=== PATIENT | male | born 1975 | race Caucasian/White ===

== ENCOUNTER 2023-12-20 12:28 | Emergency (ER) | payer MEDICAID, OTHER ==
--- NOTE | 2023-12-20 12:48 | ED Physician Documentation ---
PD HPI ALTERED MENTAL STATUS - Stated complaint Stated Complaint: BACK/LEFT HEAD PX,MEMORY LOSS - Chief complaint Chief Complaint: Neuro - History obtained from History obtained from: Patient - Additional information Additional information: 48-year-old gentleman with history of bipolar disorder currently maintained on sertraline and Wellbutrin. Has history of psychiatric hospitalizations for same. He says he felt normal Wednesday midday and then subsequently does not remember what happened. It sounds like he had some sort of thing where he was banging on cars and running in traffic and ended up getting arrested. He was in care home until this morning and he states he does not really remember anything since Wednesday. He denies any hard drug use, just nicotine. He has a history of alcoholism but says that is in remission. He does have a left posterior headache with question of head trauma but no clear head trauma. There is a family history of CADASIL. PD PAST MEDICAL HISTORY - Past Medical History Past Medical History: Yes Psych: Bipolar disorder - Past Surgical History Past Surgical History: No - Present Medications Home Medications: Ambulatory Orders Medication Instructions Recorded Confirmed Atorvastatin [Lipitor] 10 mg PO DAILY 12/20/23 12/20/23 Sertraline [Zoloft] 75 mg PO DAILY 12/20/23 12/20/23 amLODIPine [Norvasc] 5 mg PO DAILY 12/20/23 12/20/23 buPROPion [Wellbutrin Sr] 150 mg PO BID 12/20/23 12/20/23 risperiDONE [Risperdal] 0.5 mg PO BID #60 tablet 12/20/23 - Allergies Allergies/Adverse Reactions: Allergies Allergy/AdvReac Type Severity Reaction Status Date / Time venlafaxine [From Effexor] AdvReac Anxiety Verified 12/20/23 15:32 - Social History Does the pt smoke?: No Smoking Status: Never smoker Does the pt drink ETOH?: No Does the pt have substance abuse?: No - Immunizations Immunizations are current?: Yes - POLST Patient has POLST: No PD ED PE NORMAL - Vitals Vital signs reviewed: Yes - General General: Alert and oriented X 3, No acute distress - HEENT HEENT: PERRL, EOMI - Neck Neck: Supple, no meningeal sign, No bony TTP - Cardiac Cardiac: RRR, No murmur - Respiratory Respiratory: No respiratory distress, Clear bilaterally - Abdomen Abdomen: Non tender - Back Back: No CVA TTP, No spinal TTP - Derm Derm: Normal color, Warm and dry - Neuro Neuro: Alert and oriented X 3, rotating equipment engineer 2-12 intact, No motor deficit, No sensory deficit, Normal speech Eye Opening: Spontaneous Motor: Obeys Commands Verbal: Oriented GCS Score: 15 Results - Vitals Vitals: Vital Signs - 24 hr 12/20/23 12/20/23 12:38 14:55 Temperature 36.8 C Heart Rate 98 80 Respiratory 16 20 Rate Blood Pressure 155/93 H 155/89 H O2 Saturation 99 98 Oxygen O2 Source Room air - Labs Labs: Laboratory Tests 12/20/23 12/20/23 12/20/23 12:53 12:53 13:10 WBC 5.4 RBC 4.88 Hgb 14.9 Hct 43.4 MCV 88.9 MCH 30.5 MCHC 34.3 RDW 13.6 Plt Count 195 MPV 10.5 Neut # (Auto) 4.1 Lymph # (Auto) 1.0 L [place] # (Auto) 0.3 Eos # (Auto) 0.0 Baso # (Auto) 0.0 Absolute Nucleated RBC 0.00 Nucleated RBC % 0.0 Sodium 137 Potassium 3.5 Chloride 101 Carbon Dioxide 26 Anion Gap 10.0 BUN 19 Creatinine 1.0 Estimated GFR (MDRD) 79 L Glucose 158 H Calcium 9.7 Magnesium 1.8 Total Bilirubin 0.5 AST 22 ALT 31 Alkaline Phosphatase 75 Total Creatine Kinase 107 Total Protein 7.3 Albumin 4.8 Globulin 2.5 Albumin/Globulin Ratio 1.9 Lipase 23 TSH 2.11 Urine Color YELLOW Urine Clarity CLEAR Urine pH 6.0 Ur Specific [place] 1.020 Urine Protein NEGATIVE Urine Glucose (UA) NEGATIVE Urine Ketones NEGATIVE Urine Occult Blood TRACE-INTA Urine Nitrite NEGATIVE Urine Bilirubin NEGATIVE Urine Urobilinogen 0.2 (NORMAL) Ur Leukocyte Esterase NEGATIVE Ur Microscopic Review NOT INDICATED Urine Culture Comments NOT INDICATED Salicylates < 1.5 Urine Opiates Screen NEGATIVE Ur Buprenorphine Scrn NEGATIVE Ur Oxycodone Screen NEGATIVE Urine Methadone Screen NEGATIVE Acetaminophen 0.2 Ur Barbiturates Screen NEGATIVE Ur Tricyclics Screen NEGATIVE Ur Phencyclidine Scrn NEGATIVE Ur Amphetamine Screen NEGATIVE U Methamphetamines Scrn NEGATIVE U Benzodiazepines Scrn NEGATIVE Urine Cocaine Screen NEGATIVE U Cannabinoids Screen NEGATIVE Ur Drug Screen Comment CUTOFF CONC BELOW: Ethyl Alcohol < 10.0 - Rads (name of study) CT of the head without contrast was normal. Relevant Findings:: Final report received, EMP independent interpretation of test PD Medical Decision Making - ED course ED course: He has 2 days of memory loss in the setting of underlying psychiatric disease. He is on Wellbutrin and sertraline for his bipolar. Most likely going to be a resolved psychotic break. That said drug use is also considered. Nothing in the history or physical to suggest stroke. That said he has a family history which is concerning. He was seen by telepsychiatry who recommends discontinuation of he had a medical workup done which demonstrated normal CBC, CMP only notable for mild hyperglycemia, urine normal, toxicology test all negative. He was seen by our telepsychiatric field consultant who recommended discontinuation of Wellbutrin and sertraline with the addition of Risperdal 0.5 mg p.o. twice daily. Departure - Departure Disposition: Home, Self Care Clinical Impression: Bipolar disorder, current episode hypomanic Condition: Good Record reviewed to determine appropriate education?: Yes Instructions: ED Manic Depression Follow-Up: Greer Dickerson, JASMINA, DIAMOND FINISHING SUPERVISOR, PMHNP [Credentialed Staff Provider] - Prescriptions: risperiDONE [Risperdal] 0.5 mg PO BID #60 tablet Comments: You were seen today for an episode that we think was probably related to your psychiatric disorder. Given the circumstances a medical workup was done which was normal with the exception of mild elevation in your blood sugar to 158 and negative toxicology testing which includes all drugs of abuse and alcohol. CAT scan of the head was also normal/negative. Your Were seen by our telepsychiatric field consultant who recommended discontinuing Wellbutrin and sertraline with starting risperidone at 0.5 mg p.o. twice daily. I sent this prescription to [facility] in [place]. If you have any thoughts of hurting yourself or anyone else, please call the crisis line at [phone], let your outpatient provider know, call [phone], or crisis line at [phone], or return to the emergency department. Please follow-up with your primary care for provider within 2 weeks to check in on medications. We recommend reading the medication insert when you cloth picker the medication from the pharmacy for detailed information. Forms: PCP List
[2023-12-20 13:02] LABS: BASOPHILS % (AUTO) 0.4 %; EOSINOPHILS % (AUTO) 0.2 %; HCT - HEMATOCRIT 43.4 % (42.0-52.0); HGB - HEMOGLOBIN 14.9 g/dL (14.0-18.0); LYMPHOCYTES % (AUTO) 17.5 %; MEAN CORPUSCULAR HEMOGLOBIN 30.5 pg (27.0-31.0); MEAN CORPUSCULAR HGB CONC 34.3 g/dL (32.0-36.0); MEAN CORPUSCULAR VOLUME 88.9 fL (80.0-94.0); MEAN PLATELET VOLUME 10.5 fL (7.4-11.4); MONOCYTES # (AUTO) 0.3 10^3/uL (0.0-1.0); MONOCYTES % (AUTO) 6.1 %; NEUTROPHILS # (AUTO) 4.1 10^3/uL (1.5-6.6); NEUTROPHILS % (AUTO) 75.6 %; PLT - PLATELET COUNT 195 10^3/uL (130-450); RED BLOOD COUNT 4.88 10^6/uL (4.70-6.10); RED CELL DISTRIBUTION WIDTH 13.6 % (12.0-15.0); WHITE BLOOD COUNT 5.4 x10^3/uL (4.8-10.8)
[2023-12-20 13:22] LABS: BILIRUBIN,URINE NEGATIVE (NEGATIVE); CLARITY,URINE CLEAR (CLEAR); GLUCOSE, URINE (UA) NEGATIVE (NEGATIVE); KETONES,URINE (UA) NEGATIVE (NEGATIVE); LEUKOCYTE ESTERASE, URINE NEGATIVE (NEGATIVE); NITRITE,URINE NEGATIVE (NEGATIVE); OCCULT BLOOD,URINE TRACE-INTA (NEGATIVE); PROTEIN,URINE NEGATIVE (NEGATIVE); UROBILINOGEN,URINE 0.2 (NORMAL) E.U./dL (NORMAL)
--- NOTE | 2023-12-20 13:22 | CT Report ---
PROCEDURE: Head WO INDICATIONS: head inj TECHNIQUE: Noncontrast 4.5 mm thick angled axial sections acquired from the foramen magnum to the vertex. For r adiation dose reduction, the following was used: automated exposure control, adjustment of mA and/or kV according to patient size. COMPARISON: None. FINDINGS: Image quality: Excellent. CSF spaces: Basal cisterns are patent. No extra-axial fluid collections. Ventricles are normal in size and shape. Brain: No midline shift. No intracranial masses or hemorrhage. Ware-white matter interface is norm al. Skull and face: Calvarium and visualized facial bones are intact, without suspicious lesions. Sinuses: Visualized sinuses and mastoids are clear. IMPRESSION: No acute intracranial pathology. Reviewed by: Bharathi Downs MD on 12/20/2023 1:20 PM PDT Approved by: Bharathi Downs MD on 12/20/2023 1:20 PM PDT Station ID: [id number]
[2023-12-20 13:28] LABS: THYROID STIMULATING HORMONE 2.11 uIU/mL (0.34-5.60)
[2023-12-20 13:32] LABS: AMPHETAMINE SCREEN,URINE NEGATIVE (NEGATIVE); BARBITURATE SCREEN,UR NEGATIVE (NEGATIVE); BENZODIAZEPINES SCREEN, URINE NEGATIVE (NEGATIVE); BUPRENORPHINE SCREEN, URINE NEGATIVE (NEGATIVE); COCAINE SCREEN URINE NEGATIVE (NEGATIVE); METHADONE SCREEN, URINE NEGATIVE (NEGATIVE); METHAMPHETAMINES SCREEN, URINE NEGATIVE (NEGATIVE); OPIATE SCREEN, URINE NEGATIVE (NEGATIVE); OXYCODONE SCREEN, URINE NEGATIVE (NEGATIVE); THC CANNABINOID SCREEN, URINE NEGATIVE (NEGATIVE); TRICYCLIC ANTIDEPRESSANT,URINE NEGATIVE (NEGATIVE)
[2023-12-20] MEDS: amLODIPine 5 MG TABLET PO STA (13:58)
[2023-12-20 14:04] LABS: ACETAMINOPHEN 0.2 ug/mL; ALBUMIN 4.8 g/dL (3.2-5.5); ALBUMIN/GLOBULIN RATIO 1.9 (1.0-2.2); ALKALINE PHOSPHATASE 75 IU/L (42-121); ALT ALANINE AMINOTRANSFERASE 31 IU/L (10-60); AST ASPARTATE AMINOTRANSFERASE 22 IU/L (10-42); BILIRUBIN,TOTAL 0.5 mg/dL (0.2-1.0); BUN - BLOOD UREA NITROGEN 19 mg/dL (6-20); CALCIUM 9.7 mg/dL (8.5-10.3); CARBON DIOXIDE - CO2 26 mmol/L (21-32); CHLORIDE 101 mmol/L (101-111); CK- CREATINE KINASE 107 IU/L (30-223); ETOH - ETHANOL < 10.0 mg/dL; GFR - MDRD 79 (>89); GLUCOSE 158 mg/dL (74-104); LIPASE 23 U/L (11-82); MAGNESIUM 1.8 mg/dL (1.7-2.3); POTASSIUM 3.5 mmol/L (3.5-4.5); SODIUM 137 mmol/L (135-145); TOTAL PROTEIN 7.3 g/dL (6.4-8.9)
[2023-12-20 14:12] LABS: SALICYLATE < 1.5 mg/dL
--- NOTE | 2023-12-20 15:21 | TELEPSYCH PHYS NOTE ---
[facility] Telepsych Consult Consult Date: 12/20/23 Name of Referring Provider:: Dr. Nava Reason for Consult: memory loss - Suicide Risk Sreening (ASQ Tool) In the past few weeks, have you wished you were ?: No In the past few weeks, have you felt that you or your family would be better off if you were ?: Yes In the past week, have you been having thoughts about killing yourself?: Yes Have you ever tried to kill yourself?: No - Assessment Language: Hebrew Oven Baker Required: No Cultural, Christian or Spiritual Preferences: Zoroastrian Notes: MED RECS AND ASSESSMENT Chief Complaint: "memory loss" History of Present Illness: Pt is a 48yoM w/ hx of alcohol use disorder, in remission and bipolar disorder who [facility]. Pt reports he woke up Wednesday night to go to the store to get food. He states last thing he remembers is he was at bus stop talkign to people. Then, he woke up Wednesday in penitentiary. There, they told him that he had misdemeanor charges. He states he doesn't remember any of this. 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 Pt states he has no idea how any of this happened. He states he was diagnosed with bipolar disorder and was admitted to inpatient psych for severe depression and alcoholism. He states he has never been in trouble with the law or in the criminal justice system. He says this is very scary with him. He reports he woke up in excruciating pain in his head. He reports he has never had an episode like this before. He states he is undergoing divorce. He lost his house, his child, and he hasn't been able to hold a job. he states his disability claim was denied. He denies alcohol and drug use. He says they did a CTH scan. He is staying with mom who has dementia. I am unsure if pt meets criteria for asa in the past. Denies hx of seizure. Informed him to follow up with neurologist requiring memory. Pt is going to discontinue Wellbutrin. Collateral with Brother (Justyn #[phone]):did not answer Suicide Ideation - Homicide Ideation - Self Harm: Denies SI, denies HI, denies self-harm thoughts. Pt reports he wants to live for his self and his son. He reports he had trouble with gambling addiction. Psychiatric History - Treatment History: Inpatient psychiatric hospitalization: 2 prior inpatient psychiatric hospitalization Past diagnosis: bipolar disorder, alcohol use disorder, in remission since July 2023 Past SA: considering jumping off of bridge, but he did not, no prior attempt Community Resources Accessed: doesn't have outpatient treatment currently Family Psych History/ History of suicide: mom- severe depression brother- depression Nutritional Status: No nutritional concerns - Medication & Allergies Home Medications: Ambulatory Orders Medication Instructions Recorded Confirmed Atorvastatin [Lipitor] 10 mg PO DAILY 12/20/23 12/20/23 Sertraline [Zoloft] 75 mg PO DAILY 12/20/23 12/20/23 amLODIPine [Norvasc] 5 mg PO DAILY 12/20/23 12/20/23 buPROPion [Wellbutrin Sr] 150 mg PO BID 12/20/23 12/20/23 Allergies/Adverse Reactions: Allergies Allergy/AdvReac Type Severity Reaction Status Date / Time venlafaxine [From Effexor] AdvReac Anxiety Verified 12/20/23 15:32 - Drug & Alcohol History Does patient have Drug/ETOH history or addictive behavior?: Yes Use: Uses substance without health or social issues: Alcohol Dependence: Experiences withdrawal or developed tolerances: Alcohol Dependence Issues: Remission - Trauma Does the patient have a history of trauma, abuse, neglect or explotation?: Yes - Personal Information Does the patient have a history or present tendencies for violence?: None Services History: denies Does patient have any Legal Charges or Investigations?: Yes Environment & Living Situation - Social, Peer-Group (Note): Homeless Environment & Living Situation - Social, Peer-Group (Notes): lives at home with mom and intermediate occasionally, he doesn't know why he is banned from the intermediate Marital Status - Family Circumstances: getting , has 1 child Stressors - Financial Concerns: divorce, being homeless is stressful, disability claim being denied, can't hold a job, Education: dropped out in 10th grade Occupation: unemployed Collateral - Interdisciplinary Input: Reviewed ED notes, tried calling his brother, but he didn't picker tender. Collateral with ED provider who felt safe with pt discharging and will provide outpatient resources. - Medical History Psychiatric: reports: Bipolar disorder Cardiovascular: reports: Hypertension, High cholesterol - Family & Social History Family History: Mother: Mental Illness Social History Notes: homeless Childhood History: hx of trauma - Mental Status Exam Appearance and Attire: casual clothes, casually groomed Attitude and Behavior: cooperative, no PMA, no PMR Speech: normal rate, amount Affect and Mood: ok, euthymic Association and Thought Process: intact association, tangential thought process Thought Content: denies SI, denies HI Perception: denies AVH Sensorium, memory and orientation: alert and oriented to person, place, memory grossly intact, oriented to year, month. Intellectual - Cognitive functioning: fair Insight and Judgement: fair insight, fair judgement Emotional and Behavioral Functioning: fair Ability to Self-Care: fair currently - Personal Goals Short-term Goals: would like to get a place to live Long-term Goals: wants to get a car - Risk/Protective Factors Risk Factors: Trigger events leading to humiliation, shame and/or despair, Pending incarceration or homelessness, Legal problems Protective Factors / Internal: Ability to cope with stress, Fear of or the actual act of killing self, Identifies reasons for living Protective Factors / External: Cultural, spiritual and/or moral attitudes against suicide, Responsibility to children, Supportive social network of family or friends - Plan Impression/Risk Assessment: Pt is a 48 yoM w/ self reported hx of bipolar disorder and alcohol use disorder in remission who presented from the [facility]itent[facility] for memory loss. Pt denies SI, denies HI. He is future-oriented and is oriented to person, place, month, and year currently. Currently, he does not have memory loss. Recommended he see a neurologist for the memory loss to see if it is related to migraine. He is showing signs of possibly being in a hypomanic state, but he denies SI, denies HI. He is able to plan what he would do- go to mom's place. I was unable to obtain collateral information. From limited information I have, he does not appear to be an acute safety concern currently and is appropriate for outpatient level of care. I would recommend stopping his antidepressants if he has a hx of bipolar disorder. Treatment - Therapy Recommendations: - Outpatient, therapy and medication management - Please put the following in discharge instructions: " If you have any thoughts of hurting yourself or anyone else, please call the crisis line at , let your outpatient provider know, call 911 or crisis line at [phone], or return to the Emergency Department. Please follow-up with your primary care provider within 2 weeks to check-in on medications. We recommend reading the medication insert when you picker tender the medication from the pharmacy for detailed information. " Pharmacological Recommendations: - Discontinue Wellbutrin and Sertraline - Start Risperidone .5mg BID. Dr. Man will discuss risks, benefits, and side effects. - Time Spent & Provider Location Telepsych consultation conducted via videoconferencing: Yes List names and roles of persons who participated in consult: Willard Kowalski MD Telepsych Provider Location: [place] Time Spent (Minutes): 60
[2023-12-20 16:29] VITALS: BP 172/94; O2SAT 95
== END 2023-12-20 16:23 | disposition home or self-care (01) ==
LOC: ED 12:28
DX: F31.0 Bipolar disorder, current episode hypomanic (principal); R41.3 Other amnesia; F10.11 Alcohol abuse, in remission; I10 Essential (primary) hypertension; E78.00 Pure hypercholesterolemia, unspecified
CPT/HCPCS: 36415; 70450; 80053; 80143; 80179; 80306; 81003; 82077; 82550; 83690; 83735; 84443; 85025; 99283; 99284; A9270; 81001; 87086